=== PATIENT | female | born 2000 | race Caucasian/White ===

== ENCOUNTER 2020-06-04 10:22 | Outpatient (CLI) | payer OTHER | END 2020-06-04 10:23 | disposition home or self-care (01) | LOC: DTY/OP 10:22 | PROVIDERS: ATTEND Specialist | DX: E66.01 Morbid (severe) obesity due to excess calories (principal) | CPT/HCPCS: 97802 ==

== ENCOUNTER 2020-08-16 09:49 | Outpatient (CLI) | payer OTHER ==
[2020-08-16 11:51] LABS: BHCG - Serum Negative (NEGATIVE); Pregs Control Background? CLEAR/WHITE (CLR/WHITE); Pregs Control Bar Appear? YES (CONTROL BAR)
[2020-08-16 18:20] LABS: SARS-CoV-2 PCR by NAA Not Detected (NotDetected)
== END 2020-08-16 09:50 | disposition home or self-care (01) ==
LOC: LABBT 09:49
PROVIDERS: ATTEND Specialist
DX: Z01.812 Encounter for preprocedural laboratory examination (principal); K80.10 Calculus of gallbladder with chronic cholecystitis without obstruction; M25.572 Pain in left ankle and joints of left foot; G47.33 Obstructive sleep apnea (adult) (pediatric); M25.571 Pain in right ankle and joints of right foot; M54.5 Low back pain; G89.29 Other chronic pain; E66.01 Morbid (severe) obesity due to excess calories; Z20.822 Contact with and (suspected) exposure to COVID-19
CPT/HCPCS: 84703; 87635; U0003; U0005

== ENCOUNTER 2020-08-16 10:00 | Inpatient (IN) | payer OTHER ==
[2020-08-18] MEDS ORDERED: Acetaminophen 500 MG TAB ONE (06:21)
[2020-08-18] MEDS ORDERED: Ketorolac Tromethamine 30 MG/ML VIAL ONE ×2 (06:21→06:33)
[2020-08-18] MEDS ORDERED: Heparin 5,000 UNITS/ML VIAL ONE (06:22)
[2020-08-18] MEDS ORDERED: cefOXitin Sodium/Dextrose 2 GM/50 ML BAG ONE (06:22)
[2020-08-18] MEDS ORDERED: Scopolamine 1.5 mg/72 hour Patch ONE (06:22)
[2020-08-18] MEDS ORDERED: Bupivacaine PF 0.5% 30 ML VIAL ONE (06:33)
[2020-08-18] MEDS ORDERED: Lidocaine 1% w/Epinephrine 1:100K 20 ML VIAL ONE (06:33)
[2020-08-18] MEDS ORDERED: Morphine 2 MG/ML VIAL ONE (07:08)
[2020-08-18] MEDS ORDERED: Fentanyl 100 MCG/2 ML VIAL ONE ×2 (07:08→09:30)
[2020-08-18] MEDS ORDERED: Propofol 500 MG/50 ML VIAL ONE (07:19)
[2020-08-18] MEDS ORDERED: Midazolam HCl 2 mg/2 ml Vial ONE (07:21)
[2020-08-18] MEDS ORDERED: diphenhydrAMINE 50 MG/ML VIAL ONE (07:33)
[2020-08-18] MEDS ORDERED: Glycopyrrolate 0.2 MG/ML 5 ML SYRINGE ONE (07:33)
[2020-08-18] MEDS ORDERED: Rocuronium Bromide 10 MG/ML (10ML VIAL) ONE (07:33)
[2020-08-18] MEDS ORDERED: PROPOFOL 200 MG/20 ML VIAL ONE (07:33)
[2020-08-18] MEDS ORDERED: Ondansetron PF 4 MG/2 ML Vial ONE (07:33)
[2020-08-18] MEDS ORDERED: Dexamethasone 20 MG/5 ML VIAL ONE (07:33)
[2020-08-18] MEDS ORDERED: Promethazine HCl 25 MG/ML VIAL SLOW IVP PRN (09:19)
[2020-08-18] MEDS ORDERED: Ketorolac Tromethamine 30 MG/ML VIAL IVP PRN (09:19)
[2020-08-18] MEDS ORDERED: Ondansetron HCl/PF 4 MG/2 ML Vial IVP PRN (09:19)
[2020-08-18] MEDS ORDERED: Promethazine HCl 25 MG/ML VIAL IM PRN ×2 (09:19→09:45)
[2020-08-18] MEDS ORDERED: Meperidine HCl/PF 25 MG/ML VIAL SLOW IVP PRN (09:19)
[2020-08-18] MEDS ORDERED: Morphine Sulfate 2 MG/ML SYRINGE SLOW IVP PRN (09:19)
[2020-08-18] MEDS ORDERED: HYDROmorphone 2 MG/ML VIAL SLOW IVP PRN (09:19)
[2020-08-18] MEDS ORDERED: PACU-Morphine 4MG/ML VIAL SLOW IVP PRN (09:19)
[2020-08-18] MEDS ORDERED: HYDROmorphone 2 MG/ML VIAL ONE (09:30)
[2020-08-18] MEDS ORDERED: Promethazine HCl 25 MG/ML VIAL ONE (09:31)
[2020-08-18] MEDS ORDERED: Ondansetron PF 4 MG/2 ML Vial IVP PRN (09:45)
[2020-08-18] MEDS ORDERED: diphenhydrAMINE 50 MG/ML VIAL IVP PRN (09:45)
[2020-08-18] MEDS ORDERED: Morphine 4 MG/ML VIAL SLOW IVP PRN (09:45)
[2020-08-18] MEDS ORDERED: hydrALAZINE 20 MG/ML VIAL SLOW IVP PRN (09:45)
[2020-08-18] MEDS ORDERED: Morphine 2 MG/ML VIAL SLOW IVP PRN (09:45)
[2020-08-18] MEDS ORDERED: ALPRAZolam 0.25 MG TAB PO PRN (09:50)
[2020-08-18 13:02] VITALS: BMI 39.9
[2020-08-18] MEDS: 1/2 NS w/KCL 20 mEq 1,000 ML IV SCH ×2 (13:20→16:43)
[2020-08-18] MEDS: Ketorolac Tromethamine 30 MG/ML VIAL IVP SCH ×3 (13:29→23:07)
[2020-08-18] MEDS: Hydrocodone-Acetamin 15 ML UDCUP PO PRN (15:24)
[2020-08-18] MEDS ORDERED: Enoxaparin Sodium 40 MG/0.4 ML SYRINGE SC SCH (21:00)
[2020-08-18] MEDS ORDERED: FLUoxetine HCl 20 MG CAP PO SCH (21:00)
[2020-08-19] MEDS: Hydrocodone-Acetamin 15 ML UDCUP PO PRN ×3 (00:56→13:52)
[2020-08-19] MEDS: 1/2 NS w/KCL 20 mEq 1,000 ML IV SCH ×2 (03:58→09:47)
[2020-08-19] MEDS: Ketorolac Tromethamine 30 MG/ML VIAL IVP SCH ×2 (05:18→11:26)
[2020-08-19 05:52] LABS: #Lymphocytes 2.1 thou/uL (1.20-3.40); #Monocytes 1.3 thou/uL (0.11-0.59); #Neutrophils 12.7 thou/uL (1.40-6.50); %Basophils 0.1 % (0.0-1.0); %Eosinophils 0.2 % (0.0-10.0); %Lymphocytes 13.1 % (28.0-48.0); %Monocytes 8.3 % (0.0-4.0); %Neutrophils 78.4 % (31.0-61.0); Hemoglobin 14.6 g/dL (12.0-16.0); Mean Corpuscular HGB CONC 33.2 g/dL (32.0-36.0); Mean Corpuscular Hemoglobin 31.7 pg (25.0-35.0); Mean Corpuscular Volume 95.4 fL (78.0-98.0); Mean Platelet Volume 7.4 fL (7.4-10.4); Platelet Count 327 thou/uL (130-400); RBC Distribution Width 11.9 % (11.5-14.5); White Blood Cell (WBC) Count 16.2 thou/uL (4.8-10.8)
[2020-08-19 06:06] LABS: Anion Gap 12 mmol/L (10-20); BUN (Urea Nitrogen) 8 mg/dL (7.0-18.7); Calc. Creatinine Clearance 255 mL/min (70-130); Calcium 8.7 mg/dL (7.8-10.44); Carbon Dioxide 23 mmol/L (22-29); Chloride 104 mmol/L (98-107); Glucose 90 mg/dL (70-105); Potassium 4.4 mmol/L (3.5-5.1); Sodium 135 mmol/L (136-145)
[2020-08-19] MEDS ORDERED: Dextroamphetamine/Amphetamine [Adderall] 30 MG Tablet PO SCH (09:00)
[2020-08-19] MEDS ORDERED: Pantoprazole 40 MG VIAL IVP SCH (09:00)
[2020-08-19 11:41] VITALS: BP 135/82; TEMP 98.5
== END 2020-08-19 14:00 | disposition home or self-care (01) | DRG 620 ==
LOC: SURG A 08-18 06:12 → SJJU 08-18 12:44
PROVIDERS: ADMIT Specialist; ATTEND Specialist
PROC: 0DB64Z3 Excision of Stomach, Percutaneous Endoscopic Approach, Vertical (ICD-10-PCS; principal; 2020-08-18)
PROC: 0FT44ZZ Resection of Gallbladder, Percutaneous Endoscopic Approach (ICD-10-PCS; 2020-08-18)
DX: E66.01 Morbid (severe) obesity due to excess calories (principal); K80.10 Calculus of gallbladder with chronic cholecystitis without obstruction; Z68.41 Body mass index [BMI] 40.0-44.9, adult; Z20.822 Contact with and (suspected) exposure to COVID-19; F90.9 Attention-deficit hyperactivity disorder, unspecified type; J45.909 Unspecified asthma, uncomplicated; M25.571 Pain in right ankle and joints of right foot; M25.572 Pain in left ankle and joints of left foot; M54.5 Low back pain; G89.29 Other chronic pain; G47.33 Obstructive sleep apnea (adult) (pediatric); Z79.899 Other long term (current) drug therapy
CPT/HCPCS: 36415; 80048; 84703; 85025; 87635; 88304; 88307; C9113; J0694; J1100; J1170; J1200; J1644; J1650; J1885; J2250; J2270; J2405; J2550; J2704; J3010; J3480; S0020; U0003; U0005

== ENCOUNTER 2020-10-13 10:29 | Day surgery (SDC) | payer OTHER, SELFPAY ==
[2020-10-13] MEDS ORDERED: Ondansetron PF 4 MG/2 ML Vial IVP PRN (10:38)
[2020-10-13] MEDS ORDERED: Sodium Chloride 0.9% 1,000 ML IV SCH (10:45)
[2020-10-13] MEDS ORDERED: Multivitamins, Adult 10 ML, Thiamine HCl 100 MG in Sodium Chloride 0.9% 1,000 ML IV SCH (10:45)
[2020-10-13] MEDS ORDERED: Sodium Chloride 0.9% 20 ML ONE (10:48)
[2020-10-13 11:05] VITALS: BP 108/58
== END 2020-10-13 15:38 | disposition home or self-care (01) ==
LOC: ONC/OP 10:29
PROVIDERS: ATTEND Specialist
DX: E86.0 Dehydration (principal)
CPT/HCPCS: 80048; 81001; 85025; 87086; 96361; 96365; 96366; J3411; J7050

== ENCOUNTER 2020-10-21 08:23 | Day surgery (SDC) | payer OTHER ==
[~2020-10-21 08:23] MED LIST: Multivitamins, Adult 10 ML, Thiamine HCl 100 MG in Sodium Chloride 0.9% 1,000 ML IV SCH; Ondansetron PF 4 MG/2 ML Vial IVP PRN; Sodium Chloride 0.9% 1,000 ML IV SCH
[2020-10-21 10:14] VITALS: BP 117/62; TEMP 98.1
== END 2020-10-21 11:16 | disposition home or self-care (01) ==
LOC: ONC/OP 08:23
PROVIDERS: ATTEND Specialist
DX: E86.0 Dehydration (principal)
CPT/HCPCS: 96361; 96365; 96366; J3411; J7050

== ENCOUNTER → 2021-01-11 | Day surgery (SDC) | payer OTHER ==
[2021-01-11 15:42] VITALS: BP 101/62; TEMP 98.2
[2021-01-11 15:57] LABS: #Eosinphils 0.1 thou/uL (0.0-0.7); #Lymphocytes 1.6 thou/uL (1.20-3.40); #Monocytes 0.5 thou/uL (0.11-0.59); #Neutrophils 5.4 thou/uL (1.40-6.50); %Basophils 0.6 % (0.0-1.0); %Eosinophils 1.2 % (0.0-10.0); %Lymphocytes 20.8 % (21.0-51.0); %Monocytes 6.7 % (0.0-10.0); %Neutrophils 70.7 % (42.0-75.0); Hemoglobin 14.1 g/dL (12.0-16.0); Mean Corpuscular HGB CONC 34.7 g/dL (32.0-36.0); Mean Corpuscular Hemoglobin 33.8 pg (27.0-31.0); Mean Corpuscular Volume 97.3 fL (78.0-98.0); Mean Platelet Volume 9.8 fL (7.4-10.4); Platelet Count 182 thou/uL (130-400); RBC Distribution Width 12.4 % (11.5-14.5); Red Blood Cell (RBC) Count 4.18 mill/uL (4.20-5.40); White Blood Cell (WBC) Count 7.6 thou/uL (4.8-10.8)
[2021-01-11 16:41] LABS: Anion Gap 16 mmol/L (10-20); BUN (Urea Nitrogen) 7 mg/dL (7.0-18.7); Calc. Creatinine Clearance 0 mL/min (70-130); Calcium 9.4 mg/dL (7.8-10.44); Carbon Dioxide 22 mmol/L (22-29); Chloride 105 mmol/L (98-107); Glucose 72 mg/dL (70-105); Potassium 4.1 mmol/L (3.5-5.1); Sodium 139 mmol/L (136-145)
== END ==
LOC: ONC/OP 14:45
PROVIDERS: ATTEND Specialist
DX: E86.0 Dehydration (principal)
CPT/HCPCS: 36591; 80048; 85025; 96365; J3411; J7050

== ENCOUNTER 2025-01-26 10:51 | Day surgery (SDC) | payer OTHER ==
[2025-01-26] MEDS ORDERED: Acetaminophen 500 MG TAB ONE (10:58)
[2025-01-26] MEDS: Acetaminophen 500 MG TAB PO SCH (11:01)
[2025-01-26 11:19] VITALS: TEMP 98
[2025-01-26] MEDS: Ferumoxytol (NON ERSD) 510 MG in 0.9 % Sodium Chloride 150 ML IVPB SCH (11:37)
[2025-01-26 16:20] VITALS: BP 104/56
== END 2025-01-26 16:45 | disposition home or self-care (01) ==
LOC: ONC/OP 10:51
PROVIDERS: ATTEND Family Medicine
DX: O99.019 Anemia complicating pregnancy, unspecified trimester (principal); Z3A.00 Weeks of gestation of pregnancy not specified; Z98.84 Bariatric surgery status; Z91.040 Latex allergy status
CPT/HCPCS: 96365; 96366; Q0138